=== PATIENT | male | born 1975 | race Caucasian/White ===

== ENCOUNTER 2024-06-29 00:59 | Emergency (ER) | payer MEDICAID ==
[~2024-06-29] VITALS: Ht 172.7 cm; Wt 81.0 kg
[2024-06-29 01:11] VITALS: O2SAT 97
[2024-06-29] MEDS: IBUPROFEN 600MG TABLET PO STA (01:13)
[2024-06-29] MEDS ORDERED: IBUP-2029 MT (02:07)
[2024-06-29 02:19] VITALS: BP 110/69; PULSE 85; RESP 16; TEMP 36.72516; O2SAT 98
== END 2024-06-29 02:20 | disposition home or self-care (01) ==
LOC: ER 00:59
DX: S20.219A Contusion of unspecified front wall of thorax, initial encounter (principal)
CPT/HCPCS: 71045; 93005; 99283